=== PATIENT | male | born 1960 | race Caucasian/White ===

== ENCOUNTER 2017-10-26 11:35 | Emergency (ER) | payer OTHER ==
[~2017-10-26] VITALS: Ht 182.9 cm; Wt 85.7 kg
[~2017-10-26 11:35] MED LIST: ATIVAN1 M1 PO; CARAFATE1 GM/10 ML PO; CLONIDINE HCL0.1 MG PO; FIORICET 50-301 EACH PO; KEFLEX500 MG PO; LEVOTHYROXINE112 MCG PO; VENTOLIN H0.09 MG/Ac INH; ZESTRIL20 M1 PO; ZOFRAN ODT4 MG PO
--- NOTE | 2017-10-26 15:11 | ED GI/GU/ABDOMINAL COMPLAINT ---
History of Present Illness General Chief Complaint: Male Genitourinary Problems Stated Complaint: HERNIA PAIN Source: patient Exam Limitations: poor historian Vital Signs & Intake/Output Vital Signs & Intake/Output Vital Signs Date Time Temp Pulse Resp B/P B/P Pulse O2 O2 Flow FiO2 Mean Ox Delivery Rate 10/26 1605 Room Air 10/26 1205 97.6 107 20 107/73 98 Room Air Allergies Coded Allergies: NO KNOWN ALLERGIES (05/07/16) Reconcile Medications Hydrocodone/Acetaminophen (Vicodin 5-300 MG Tablet) 5 MG-300 MG TABLET 1 TAB PO BID PRN PAIN Levothyroxine Sodium 112 MCG TABLET 1 TAB PO DAILY AC THYROID (Reported) Lisinopril (Zestril) 20 MG TABLET 1 TAB PO DAILY HEART (Reported) Ondansetron HCl (Zofran) 4 MG TABLET 1 TAB PO Q6-8P PRN NAUSEA Triage Note: PT TO ED C/O WITH HERNIA REPAIR BY DR PETERSEN. C/O VOMITING X 1 TODAY, DENIES DIARRHEA. Triage Nurses Notes Reviewed? yes Onset: Gradual Duration: getting worse, waxing and waning Quality/Severity: sharpness, severe, stabbing Severity Numbers: 7 Radiation: no radiation Activities at Onset: none HPI: Patient is a 57-year-old male with a past medical history of hypothyroidism and hypertension and bilateral inguinal hernia repairs with a past medical history of diverticulitis and perforation with resection per patient who presented to emergency with a one-week history of waxing and waning left lower quadrant abdominal pain with intermittent symptoms of nausea and 3 episodes of nonbloody nonbilious emesis. Patient is complaining of intermittent loose watery diarrhea production no blood no black noted. Denies any fever chills chest pain shortness breath arm pain jaw pain testicular pain or swelling or dysuria. Past History Travel History Traveled to [place] past 21 day No Medical History Any Pertinent Medical History? 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 No Review of Systems Review of Systems Constitutional: Reports: no symptoms. EENTM: Reports: no symptoms. Respiratory: Reports: no symptoms. Cardiovascular: Reports: no symptoms. GI: Reports: see HPI, abdominal pain. Genitourinary: Reports: no symptoms. Musculoskeletal: Reports: no symptoms. Skin: Reports: no symptoms. Neurological/Psychological: Reports: no symptoms. Hematologic/Endocrine: Reports: no symptoms. Immunologic/Allergic: Reports: no symptoms. All Other Systems: Reviewed and Negative Physical Exam Physical Exam General Appearance: mild distress Head: atraumatic Eyes: Bilateral: normal appearance. Ears, Nose, Throat, Mouth: moist mucous membrane Neck: normal inspection Respiratory: normal breath sounds, no respiratory distress Cardiovascular: regular rate/rhythm Gastrointestinal: normal bowel sounds, LLQ ABDOMINAL PAIN NO PERITONEAL PAIN Extremities: normal range of motion Skin: intact, normal color, warm/dry Core Measures ACS in differential dx? No Sepsis Present: No Sepsis Focused Exam Completed? No Progress Differential Diagnosis: AAA, AMI, biliary colic, bowel obstruction, colon cancer , cholecystitis, diverticulitis, epididymitis, esophageal varices, gastritis, hepatitis, hernia, hemorrhoids, ischemic bowel, inflamm bowel dis, orchitis, pancreatitis, prostatitis, peptic ulcer, PUD/GERD, perforated viscous, pyelonephritis, SBO, STD, testicular torsion, ureterolithiasis, urinary retention, urethritis, UTI/pyelo Plan of Care: Orders Procedure Date/time Status LACTIC ACID 10/26 1819 Active LACTIC ACID 10/26 1519 Complete COMPREHENSIVE METABOLIC PANEL 10/26 1519 Complete CBC WITHOUT DIFFERENTIAL 10/26 1519 Complete Laboratory Tests 10/26/17 1615: Anion Gap 14, Estimated GFR > 60, BUN/Creatinine Ratio 12.5, Glucose 125 H, Lactic Acid 2.4 H, Calcium 9.8, Total Bilirubin 0.8, AST 22, ALT 33, Alkaline Phosphatase 85, Total Protein 7.9, Albumin 4.5, Globulin 3.4, Albumin/Globulin Ratio 1.3, CBC w Diff NO MAN DIFF REQ, RBC 5.75, MCV 87.1, MCH 29.1, MCHC 33.4, RDW 13.5, MPV 8.4, Gran % 75.6 H, Lymphocytes % 16.9 L, Monocytes % 6.6, Eosinophils % 0.5, Basophils % 0.4, Absolute Granulocytes 7.4 H, Absolute Lymphocytes 1.7, Absolute Monocytes 0.6, Absolute Eosinophils 0.1, Absolute Basophils 0 Patient after morphine was inserted had relief of the symptoms blood work was resulted IV fluids were administered 1850 CT scan currently pending Patient was given IV fluids due to mild elevation of lactic acid however CT scan was unremarkable. Patient was discussed with all lab work and results of imaging patient was able tolerate by mouth on discharge patient looks well no apparent distress and will comply with discharge instructions and had no questions Diagnostic Imaging: Viewed by Me: CT Scan. Radiology Impression: no acute abnormality, no fracture Initial ED EKG: none Comments: PATIENT: KORI CULVER PRESENT AGE: 57 PATIENT ACCOUNT NO: [id number] : 60 LOCATION: [facility] ORDERING PHYSICIAN: Rod HARRIS SERVICE DATE: 10/26/17 EXAM TYPE: CAT - CT ABD & PELVIS W IV CONTRAST EXAMINATION: CT ABDOMEN AND PELVIS WITH CONTRAST CLINICAL INFORMATION: Pain. Left lower quadrant pain. Nausea. COMPARISON: CT abdomen pelvis 09/04/2015 06/16/2012 TECHNIQUE: Multidetector volumetric imaging was performed of the abdomen and pelvis following IV administration of 95 mL of Optiray 320 intravenous contrast. Sagittal and coronal reformatted images were obtained on the technologist's workstation. DLP: 375.82 mGy-cm FINDINGS: LUNG BASES: The visualized lung bases are unremarkable. LIVER, GALLBLADDER, AND BILIARY TREE: There are a few tiny less than 5 mm hypodensities in the liver, right lobe, which are stable since prior CAT scan 06/16/2012. No suspicious liver lesions. No intrahepatic bile duct dilatation. The gallbladder is unremarkable with no evidence of radiopaque gallstones, gallbladder wall thickening, or obvious pericholecystic inflammatory changes. PANCREAS: Unremarkable. SPLEEN: Unremarkable. Small splenule at the anterior splenic margin. ADRENAL GLANDS: Unremarkable. KIDNEYS AND URETERS: The kidneys are normal in size, shape, and attenuation. No hydronephrosis, hydroureter, or calculi seen. No perinephric stranding. BLADDER: Unremarkable. GASTROINTESTINAL TRACT: No acute change of the bowel. There is no bowel obstruction. There is no bowel wall thickening or edema. Moderate amount of scattered stool in the colon. There is no diverticula seen. The appendix is not identified. There is no inflammation of the mesentery. ABDOMINAL WALL: No significant hernia is appreciated. LYMPH NODES: Normal. VASCULAR: Unremarkable. PELVIC VISCERA: Prostate measures 5 cm transverse. Small calcifications within the prostate. OSSEOUS STRUCTURES: Degenerative spondylosis of spine with multilevel endplate spurs of the thoracic and lumbar vertebrae. Incidental note made of a 3 cm lipoma in the right gluteus muscle. Degenerative joint disease of hips bilateral with joint space narrowing, spurring of the acetabula and femoral heads and multiple subchondral cysts in the acetabulum of the largest on the left measuring 3 cm. IMPRESSION: No acute abnormality CT scan abdomen and pelvis. No acute change of the bowel. DICTATED BY: Junior Crawford MD DATE/TIME DICTATED:10/26/171847 DISABILITY PROGRAM NAVIGATOR:WARREN DATE/TIME TRANSCRIBED:10/26/171847 Departure Departure Disposition: HOME OR SELF CARE Condition: Stable Clinical Impression Primary Impression: Abdominal pain Referrals: Shanell BAZZI,Danilo Waldron MD,Dariusz Brumfield (PCP/Family) Additional Instructions: As discussed begin the prescription of Vicodin for pain and the prescription of Zofran for nausea, prescription is waiting at [facility], if symptoms worsen return to emergency ROOM begin a 48 hour clear liquid and bland diet, if symptoms do not improve on Monday follow-up with gastric gastrologist . Departure Forms: Customer Survey General Discharge Information Prescriptions: Current Visit Scripts Hydrocodone/Acetaminophen (Vicodin 5-300 MG Tablet) 1 TAB PO BID PRN PAIN #8 TAB Ondansetron HCl (Zofran) 1 TAB PO Q6-8P PRN NAUSEA #8 TAB
[2017-10-26 16:25] LABS: ABSOLUTE BASOPHIL COUNT 0 /CUMM (0.0-0.2); ABSOLUTE EOSINOPHIL COUNT 0.1 /CUMM (0.0-0.7); ABSOLUTE GRANULOCYTE CT 7.4 /CUMM (1.4-6.5); ABSOLUTE LYMPH COUNT 1.7 /CUMM (1.2-3.4); ABSOLUTE MONOCYTE COUNT 0.6 /CUMM (0.10-0.60); BASOPHIL % 0.4 % (0.0-2.0); EOSINOPHIL % 0.5 % (0-5); GRANULOCYTE % 75.6 % (42.2-75.2); HEMATOCRIT 50.1 % (42-52); MEAN CORPUSCULAR HGB 29.1 PG (27.0-31.0); MEAN CORPUSCULAR HGB CONC 33.4 G/DL (33.0-37.0); MEAN CORPUSCULAR VOLUME 87.1 FL (80.0-94.0); MEAN PLATELET VOLUME 8.4 FL (7.4-10.4); PLATELET COUNT 215 /CUMM (130-400); RBC DISTRIBUTION WIDTH 13.5 % (11.5-14.5); RED BLOOD CELL CT 5.75 /CUMM (4.70-6.10); WHITE BLOOD CELL COUNT 9.8 /CUMM (4.8-10.8)
--- NOTE | 2017-10-26 19:01 | CT SCAN REPORT ---
EXAMINATION: CT ABDOMEN AND PELVIS WITH CONTRAST CLINICAL INFORMATION: Pain. Left lower quadrant pain. Nausea. COMPARISON: CT abdomen pelvis 09/04/2015 06/16/2012 TECHNIQUE: Multidetector volumetric imaging was performed of the abdomen and pelvis following IV administration of 95 mL of Optiray 320 intravenous contrast. Sagittal and coronal reformatted images were obtained on the technologist's workstation. DLP: 375.82 mGy-cm FINDINGS: LUNG BASES: The visualized lung bases are unremarkable. LIVER, GALLBLADDER, AND BILIARY TREE: There are a few tiny less than 5 mm hypodensities in the liver, right lobe, which are stable since prior CAT scan 06/16/2012. No suspicious liver lesions. No intrahepatic bile duct dilatation. The gallbladder is unremarkable with no evidence of radiopaque gallstones, gallbladder wall thickening, or obvious pericholecystic inflammatory changes. PANCREAS: Unremarkable. SPLEEN: Unremarkable. Small splenule at the anterior splenic margin. ADRENAL GLANDS: Unremarkable. KIDNEYS AND URETERS: The kidneys are normal in size, shape, and attenuation. No hydronephrosis, hydroureter, or calculi seen. No perinephric stranding. BLADDER: Unremarkable. GASTROINTESTINAL TRACT: No acute change of the bowel. There is no bowel obstruction. There is no bowel wall thickening or edema. Moderate amount of scattered stool in the colon. There is no diverticula seen. The appendix is not identified. There is no inflammation of the mesentery. ABDOMINAL WALL: No significant hernia is appreciated. LYMPH NODES: Normal. VASCULAR: Unremarkable. PELVIC VISCERA: Prostate measures 5 cm transverse. Small calcifications within the prostate. OSSEOUS STRUCTURES: Degenerative spondylosis of spine with multilevel endplate spurs of the thoracic and lumbar vertebrae. Incidental note made of a 3 cm lipoma in the right gluteus muscle. Degenerative joint disease of hips bilateral with joint space narrowing, spurring of the acetabula and femoral heads and multiple subchondral cysts in the acetabulum of the largest on the left measuring 3 cm. IMPRESSION: No acute abnormality CT scan abdomen and pelvis. No acute change of the bowel.
[2017-10-26] MEDS ORDERED: VICODIN 5-3001 EACH PO (19:22)
[2017-10-26] MEDS ORDERED: ZOFRAN4 M2 PO (19:22)
[2017-10-26 19:50] VITALS: BP 110/68
== END 2017-10-26 20:03 ==
LOC: ERH 11:35
PROVIDERS: Physician Assistant
DX: R10.32 Left lower quadrant pain (principal)
CPT/HCPCS: 74177; 96374; 96375; J2405; J7040

== ENCOUNTER 2017-12-22 07:32 | Emergency (ER) | payer OTHER ==
[~2017-12-22] VITALS: Ht 182.9 cm; Wt 89.8 kg
[~2017-12-22 07:32] MED LIST changes: +VICODIN 5-3001 EACH PO; +ZOFRAN4 M2 PO
--- NOTE | 2017-12-22 07:37 | ED GI/GU/ABDOMINAL COMPLAINT ---
History of Present Illness General Chief Complaint: Nausea, Vomiting, Diarrhea Stated Complaint: VOMITING Source: patient, old records Exam Limitations: no limitations Vital Signs & Intake/Output Vital Signs & Intake/Output Vital Signs Date Time Temp Pulse Resp B/P B/P Pulse O2 O2 Flow FiO2 Mean Ox Delivery Rate 12/22 0802 97 Room Air Room Air 12/22 0735 97.4 108 20 143/90 99 Room Air Allergies Coded Allergies: NO KNOWN ALLERGIES (05/07/16) Reconcile Medications Hydrocodone/Acetaminophen (Vicodin 5-300 MG Tablet) 5 MG-300 MG TABLET 1 TAB PO BID PRN PAIN Levothyroxine Sodium 112 MCG TABLET 1 TAB PO DAILY AC THYROID (Reported) Lisinopril (Zestril) 20 MG TABLET 1 TAB PO DAILY HEART (Reported) Ondansetron HCl (Zofran) 4 MG TABLET 1 TAB PO Q6-8P PRN NAUSEA Triage Note: PT TO ED C/O VOMITING AFTER EATING X A FEW WEEKS. DENIES DIARRHEA. Triage Nurses Notes Reviewed? yes HPI: Patient presents with left upper quadrant abdominal pain as well as nausea vomiting. The abdominal pain has been intermittent over the past few months. The pain is squeezing and cramping in nature. The pain is exacerbated when he bends over to tie his shoes. There is no radiation of the pain. The pain waxes and wanes in intensity but he doesn't think that goes away entirely. The pain goes anywhere from 8 out of 10 for a few days and then down to barely noticeable 4 a few days to even a few weeks that time. Patient states that over the past week he has been vomiting. Patient states that the vomiting seems to be unrelated to food. There is no diarrhea. There are no fevers or chills. Past History Travel History Traveled to [place] past 21 day No Medical History Any Pertinent Medical History? 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 No Review of Systems Review of Systems Constitutional: Reports: no symptoms. EENTM: Reports: no symptoms. Respiratory: Reports: no symptoms. Cardiovascular: Reports: no symptoms. GI: Reports: see HPI, abdominal pain, nausea, vomiting. Genitourinary: Reports: no symptoms. Musculoskeletal: Reports: no symptoms. Skin: Reports: no symptoms. Neurological/Psychological: Reports: no symptoms. Hematologic/Endocrine: Reports: no symptoms. Immunologic/Allergic: Reports: no symptoms. All Other Systems: Reviewed and Negative Physical Exam Physical Exam General Appearance: well developed/nourished, alert, awake, anxious, mild distress Head: atraumatic, normal appearance Eyes: Bilateral: PERRL, EOMI. Ears, Nose, Throat, Mouth: hearing grossly normal, DRY MM Neck: normal inspection, supple, full range of motion Respiratory: normal breath sounds, chest non-tender, no respiratory distress, lungs clear Cardiovascular: regular rate/rhythm, normal peripheral pulses Gastrointestinal: normal bowel sounds, soft, no organomegaly, tenderness (LUQ), NO REBBOUNG, NO GUARDING Back: normal inspection, normal range of motion, NO CVA TENDERNESS Extremities: normal range of motion Neurologic/Psych: no motor/sensory deficits, awake, alert, oriented x 3, normal gait, normal mood/affect Skin: intact, normal color, warm/dry Core Measures ACS in differential dx? No Sepsis Present: No Sepsis Focused Exam Completed? No Progress Differential Diagnosis: AMI, biliary colic, bowel obstruction, cholecystitis, gastritis, hepatitis, hernia, ischemic bowel, inflamm bowel dis, pancreatitis, peptic ulcer, PUD/GERD Plan of Care: Orders Procedure Date/time Status TROPONIN LEVEL 12/22 0738 Complete LIPASE 12/22 0738 Complete COMPREHENSIVE METABOLIC PANEL 12/22 0738 Complete CBC WITHOUT DIFFERENTIAL 12/22 737 Complete AMYLASE 12/22 07 Complete EKG 12/22 0738 Active Laboratory Tests 12/22/17 0740: Anion Gap 13, Estimated GFR > 60, BUN/Creatinine Ratio 12.2, Glucose 120 H, Calcium 9.7, Total Bilirubin 1.0, AST 23, ALT 40, Alkaline Phosphatase 104, Troponin I < 0.01, Total Protein 8.8 H, Albumin 4.6, Globulin 4.2, Albumin/ Globulin Ratio 1.1, Amylase 55, Lipase 66, CBC w Diff NO MAN DIFF REQ, RBC 5.69, MCV 85.3, MCH 28.7, MCHC 33.7, RDW 13.3, MPV 8.9, Gran % 72.0, Lymphocytes % 17.4 L, Monocytes % 8.6, Eosinophils % 1.6, Basophils % 0.4, Absolute Granulocytes 5.0, Absolute Lymphocytes 1.2, Absolute Monocytes 0.6, Absolute Eosinophils 0.1, Absolute Basophils 0 Diagnostic Imaging: Viewed by Me: CT Scan. Discussed w/RAD: CT Scan. Radiology Impression: SEE BELOW Initial ED EKG: SR, SLIGHT ST DEPRESSIONS ANDT WAVE INVERSIONS INFERIO-LATERALLY , SLIGHTLY MORE PROMINANT THAN 07/27/6016 Comments: PATIENT: KORI CULVER PRESENT AGE: 57 PATIENT ACCOUNT NO: [id number] : 60 LOCATION: [facility] ORDERING PHYSICIAN: Levi Fisher MD SERVICE DATE: 12/22/17 EXAM TYPE: CAT - CT ABD & PELVIS W IV CONTRAST EXAMINATION: CT ABDOMEN AND PELVIS WITH CONTRAST CLINICAL INFORMATION: Left upper quadrant pain and vomiting. Question hernia. COMPARISON: 10/26/2017. 09/04/2015. 06/16/2012 TECHNIQUE: Multidetector volumetric imaging was performed of the abdomen and pelvis following IV administration of 95 mL of Optiray 320 intravenous contrast. Sagittal and coronal reformatted images were obtained on the technologist's workstation. DLP: 365 mGy-cm FINDINGS: LUNG BASES: There are some mild dependent changes at the lung bases. There is a 3 mm pulmonary nodule at the left base (series 3 image 93), that was likely present on the prior studies dating back to 09/04/2015 and probably 2011 as well, although breathing artifact on the priors limits ideal comparison. There is some mild fibrosis in the right base medially adjacent to spinal osteophytes. The imaged heart and pericardium appear unremarkable. Minor gynecomastia is visualized worse on the right. LIVER, GALLBLADDER, AND BILIARY TREE: Tiny hypoattenuating foci measuring 2 to 3 mm are visualized within the liver, stable, compatible with cysts or hemangiomas. Otherwise the liver appears unremarkable. No contour abnormality or ductal dilatation. No enhancing mass. The gallbladder is unremarkable with no evidence of radiopaque gallstones, gallbladder wall thickening, or obvious pericholecystic inflammatory changes. PANCREAS: Unremarkable. SPLEEN: Unremarkable. ADRENAL GLANDS: Unremarkable. KIDNEYS AND URETERS: The kidneys are normal in size, shape, and attenuation. No hydronephrosis, hydroureter, or calculi seen. No perinephric stranding. BLADDER: Unremarkable. A punctate calcification anterior to the bladder is stable. GASTROINTESTINAL TRACT: The small and large bowel are unremarkable. The appendix is not discretely visualized. No stranding in the right lower quadrant. ABDOMINAL WALL: No significant hernia is appreciated. LYMPH NODES: No adenopathy. VASCULAR: The aorta is normal in caliber. No acute vascular finding. PELVIC VISCERA: The prostate is mildly enlarged with central calcifications crating a mild impression on the inferior aspect of the bladder, unchanged. OSSEOUS STRUCTURES: There are 5 nonrib-bearing lumbar type vertebral bodies. There is mild lower thoracic/lumbar spondylosis without compression deformity. No spondylolysis. No acute osseous abnormality. There are stable degenerative changes in both hips with subchondral cyst formation in the acetabula, left more than right, unchanged. IMPRESSION: No acute intra-abdominal or intrapelvic pathology. DICTATED BY: Jasen Salter MD DATE/TIME DICTATED:12/22/17929 ROTOR WINDER:WARREN DATE/TIME TRANSCRIBED:12/22/17929 CONFIDENTIAL, DO NOT COPY WITHOUT APPROPRIATE AUTHORIZATION. <Electronically signed in Other Vendor System> SIGNED BY: Jasen Salter MD 12/22/1743 Patient has been updated on CAT scan and lab results. Questions are been answered. Patient is stable for discharge. Departure Departure Disposition: HOME OR SELF CARE Condition: Stable Clinical Impression Primary Impression: Left upper quadrant abdominal pain of unknown etiology Secondary Impressions: Vomiting Qualifiers: Vomiting type: unspecified Vomiting Intractability: non-intractable Nausea presence: with nausea Qualified Code: R11.2 - Nausea with vomiting, unspecified Referrals: Hipolito BAZZI,Lm Waldron MD,Dariusz Brumfield (PCP/Family) Additional Instructions: TAKE ZOFRAN NEEDED FOR NAUSEA FOLLOW UP WITH GASTROENTEROLOGY RETURN FOR ANY CONCERNS Departure Forms: Customer Survey General Discharge Information Prescriptions: Current Visit Scripts Ondansetron (Zofran Odt) 1 TAB SL TID PRN NAUSEA #10 TAB
[2017-12-22 08:08] LABS: ABSOLUTE BASOPHIL COUNT 0 /CUMM (0.0-0.2); ABSOLUTE EOSINOPHIL COUNT 0.1 /CUMM (0.0-0.7); ABSOLUTE LYMPH COUNT 1.2 /CUMM (1.2-3.4); ABSOLUTE MONOCYTE COUNT 0.6 /CUMM (0.10-0.60); BASOPHIL % 0.4 % (0.0-2.0); EOSINOPHIL % 1.6 % (0-5); HEMATOCRIT 48.5 % (42-52); MEAN CORPUSCULAR HGB 28.7 PG (27.0-31.0); MEAN CORPUSCULAR HGB CONC 33.7 G/DL (33.0-37.0); MEAN CORPUSCULAR VOLUME 85.3 FL (80.0-94.0); MEAN PLATELET VOLUME 8.9 FL (7.4-10.4); PLATELET COUNT 197 /CUMM (130-400); RBC DISTRIBUTION WIDTH 13.3 % (11.5-14.5); RED BLOOD CELL CT 5.69 /CUMM (4.70-6.10)
--- NOTE | 2017-12-22 09:43 | CT SCAN REPORT ---
EXAMINATION: CT ABDOMEN AND PELVIS WITH CONTRAST CLINICAL INFORMATION: Left upper quadrant pain and vomiting. Question hernia. COMPARISON: 10/26/2017. 09/04/2015. 06/16/2012 TECHNIQUE: Multidetector volumetric imaging was performed of the abdomen and pelvis following IV administration of 95 mL of Optiray 320 intravenous contrast. Sagittal and coronal reformatted images were obtained on the technologist's workstation. DLP: 365 mGy-cm FINDINGS: LUNG BASES: There are some mild dependent changes at the lung bases. There is a 3 mm pulmonary nodule at the left base (series 3 image 93), that was likely present on the prior studies dating back to 09/04/2015 and probably 2011 as well, although breathing artifact on the priors limits ideal comparison. There is some mild fibrosis in the right base medially adjacent to spinal osteophytes. The imaged heart and pericardium appear unremarkable. Minor gynecomastia is visualized worse on the right. LIVER, GALLBLADDER, AND BILIARY TREE: Tiny hypoattenuating foci measuring 2 to 3 mm are visualized within the liver, stable, compatible with cysts or hemangiomas. Otherwise the liver appears unremarkable. No contour abnormality or ductal dilatation. No enhancing mass. The gallbladder is unremarkable with no evidence of radiopaque gallstones, gallbladder wall thickening, or obvious pericholecystic inflammatory changes. PANCREAS: Unremarkable. SPLEEN: Unremarkable. ADRENAL GLANDS: Unremarkable. KIDNEYS AND URETERS: The kidneys are normal in size, shape, and attenuation. No hydronephrosis, hydroureter, or calculi seen. No perinephric stranding. BLADDER: Unremarkable. A punctate calcification anterior to the bladder is stable. GASTROINTESTINAL TRACT: The small and large bowel are unremarkable. The appendix is not discretely visualized. No stranding in the right lower quadrant. ABDOMINAL WALL: No significant hernia is appreciated. LYMPH NODES: No adenopathy. VASCULAR: The aorta is normal in caliber. No acute vascular finding. PELVIC VISCERA: The prostate is mildly enlarged with central calcifications crating a mild impression on the inferior aspect of the bladder, unchanged. OSSEOUS STRUCTURES: There are 5 nonrib-bearing lumbar type vertebral bodies. There is mild lower thoracic/lumbar spondylosis without compression deformity. No spondylolysis. No acute osseous abnormality. There are stable degenerative changes in both hips with subchondral cyst formation in the acetabula, left more than right, unchanged. IMPRESSION: No acute intra-abdominal or intrapelvic pathology.
[2017-12-22] MEDS ORDERED: ZOFRAN ODT4 M1 SL (09:49)
[2017-12-22 09:54] VITALS: BP 147/82
== END 2017-12-22 09:57 ==
LOC: ERH 07:32
PROVIDERS: Emergency Medicine
DX: R10.12 Left upper quadrant pain (principal); R11.2 Nausea with vomiting, unspecified
CPT/HCPCS: 74177; 93005; 93010; 96361; 96374; J2405

== ENCOUNTER 2018-03-05 12:33 | Emergency (ER) | payer OTHER ==
[~2018-03-05] VITALS: Ht 180.3 cm; Wt 85.7 kg
[~2018-03-05 12:33] MED LIST changes: +ZOFRAN ODT4 M1 SL
--- NOTE | 2018-03-05 13:04 | ED GI/GU/ABDOMINAL COMPLAINT ---
History of Present Illness General Chief Complaint: General Adult Stated Complaint: BIBA CONSTIPATION Source: patient, old records Exam Limitations: no limitations Vital Signs & Intake/Output Vital Signs & Intake/Output Vital Signs Date Time Temp Pulse Resp B/P B/P Pulse O2 O2 Flow FiO2 Mean Ox Delivery Rate 03/05 1519 92 18 113/75 94 Room Air 03/05 1506 87 18 120/77 99 Room Air 03/05 1235 98.1 98 18 135/80 98 Room Air Allergies Coded Allergies: NO KNOWN ALLERGIES (05/07/16) Reconcile Medications Levothyroxine Sodium 112 MCG TABLET 1 TAB PO DAILY AC THYROID (Reported) Lisinopril (Zestril) 20 MG TABLET 1 TAB PO DAILY HEART (Reported) Polyethylene Glycol 3350 (Miralax) 17 GRAM/DOSE POWDER 17 GM PO DAILY constipation mix with water, juice, soda, coffee or tea Triage Note: 57 Y/O MALE [place] FROM HOME FOR EVAL OF ABDOMINAL PAIN SINCE THIS MORNING. PT REPORTS HX HERNIAS BUT STATES "THIS FEELS DIFFERENT". REPORTS N/V AND STATES HE HAS HAD CONSTIPATION WELL. LAST BM TODAY STATING "I HAD TO USE MY FINGERS TO GET IT OUT". PER EMS, PT TOLD THEM HE "USED A BUTTER KNIFE" TO GET STOOL OUT. NO BLEEDING NOTED AT THIS TIME. AFEBRILE. AWAITING EVAL Triage Nurses Notes Reviewed? yes Onset: Yesterday Duration: day(s):, constant, continues in ED, getting worse Timing: recent history Quality/Severity: fullness, severe Location: rectal Radiation: no radiation Activities at Onset: rest Prior Abdominal Problems: none Past Sexual History: Unobtainable at this time No Modifying Factors: none Associated Symptoms: abdominal pain HPI: 1 day prior to admission patient reports having normal bowel movement. He developed generalized abdominal bloating discomfort unable to pass his bowels so he placed a butter knife his rectum. He then used his fingers try to disimpact himself. He began bleeding so he called 911. He denies fever chills nausea vomiting diarrhea chest pain cough shortness breath headache dysuria rash bleeding. Past History Travel History Traveled to [place] past 21 day No Medical History Any Pertinent Medical History? 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 No Review of Systems Review of Systems Constitutional: Reports: no symptoms. EENTM: Reports: no symptoms. Respiratory: Reports: no symptoms. Cardiovascular: Reports: no symptoms. GI: Reports: see HPI, bloating, constipation. Genitourinary: Reports: no symptoms. Musculoskeletal: Reports: no symptoms. Skin: Reports: no symptoms. Neurological/Psychological: Reports: no symptoms. Hematologic/Endocrine: Reports: no symptoms. Immunologic/Allergic: Reports: no symptoms. All Other Systems: Reviewed and Negative Physical Exam Physical Exam General Appearance: well developed/nourished, alert, awake, anxious, moderate distress Head: atraumatic, normal appearance Eyes: Bilateral: normal appearance, PERRL, EOMI, normal inspection. Ears, Nose, Throat, Mouth: hearing grossly normal, moist mucous membrane Neck: normal inspection, supple, full range of motion, normal alignment Respiratory: normal breath sounds, chest non-tender, no respiratory distress, quiet respiration, lungs clear Cardiovascular: regular rate/rhythm, normal peripheral pulses, norml femoral pulses equa Peripheral Pulses: 4+ carotid (R), 4+ carotid (L) Gastrointestinal: normal bowel sounds, soft, non-tender, no organomegaly Rectal: normal inspection, fecal impaction, no bleeding Male Genitals: normal genitalia Back: normal inspection, normal range of motion, no vertebral tenderness Extremities: normal range of motion, no ligament instability Neurologic/Psych: no motor/sensory deficits, awake, alert, oriented x 3, normal gait, normal mood/affect, plant guard II-XII nml as tested Skin: intact, normal color, warm/dry Core Measures ACS in differential dx? No Sepsis Present: No Sepsis Focused Exam Completed? No Progress Differential Diagnosis: bowel obstruction Plan of Care: Orders Procedure Date/time Status Enema 03/05 1353 Active Diagnostic Imaging: Viewed by Me: Radiology Read. Discussed w/RAD: Radiology Read. Radiology Impression: FINDINGS: There is no evidence of free air or obstruction. No abnormal calcifications are seen Initial ED EKG: none Comments: Improved after enema Departure Departure Time of Disposition: 1541 Disposition: HOME OR SELF CARE Condition: Stable Clinical Impression Primary Impression: Constipation Referrals: Waldron Dariusz BAZZI (PCP/Family) Departure Forms: Customer Survey General Discharge Information Prescriptions: Current Visit Scripts Polyethylene Glycol 3350 (Miralax) 17 GM PO DAILY #527 GM mix with water, juice, soda, coffee or tea PA/PERINATAL TECH Co-Sign Statement Statement: ED Attending supervision documentation- [] I saw and evaluated the patient. I have also reviewed all the pertinent lab results and diagnostic results. I agree with the findings and the plan of care as documented in the PA's/PERINATAL TECH's documentation. [] I have reviewed the ED Record and agree with the PA's/PERINATAL TECH's documentation. [] Additions or exceptions (if any) to the PAs/PERINATAL TECH's note and plan are summarized below: []
[2018-03-05] MEDS ORDERED: MIRALAX119 GM PO (14:16)
--- NOTE | 2018-03-05 14:38 | RADIOLOGY REPORT ---
EXAMINATION: XR ABDOMEN MULTIPLE VIEWS CLINICAL INDICATION: Pain and distention COMPARISON: None TECHNIQUE: 2 views of the abdomen. FINDINGS: There is no evidence of free air or obstruction. No abnormal calcifications are seen IMPRESSION: Unremarkable examination.
[2018-03-05 15:19] VITALS: BP 113/75
== END 2018-03-05 15:47 ==
LOC: ERH 12:33
DX: K59.00 Constipation, unspecified (principal)
CPT/HCPCS: 74021